=== PATIENT | female | born 1985 | race Two or more races ===

== ENCOUNTER 2022-07-15 21:17 | Inpatient (IN) | payer MEDICAID, OTHER ==
[~2022-07-15] VITALS: Ht 162.6 cm; Wt 64.7 kg
[2022-07-15] MEDS ORDERED: ONDANSETRON ODT 4 MG TAB PO ONE (23:30)
[2022-07-15 23:36] LABS: Basophils # (auto) 0.1 10 ^3/uL (0-0.2); Eosinophils # (auto) 0 10 ^3/uL (0-0.8); Eosinophils % (auto) 0.2 % (0.0-7.0); Hematocrit 35.1 % (36.0-46.0)
[2022-07-15 23:38] LABS: Basophils % (auto) 0.4 % (0.0-2.0); Hemoglobin 10.7 g/dL (12.2-16.2); Lymphocytes # (auto) 1.5 10 ^3/uL (0.4-5.4); Lymphocytes % (auto) 9.7 % (10.0-50.0); Mean Corpuscular Hemoglobin 22.1 pg (28.0-32.0); Mean Corpuscular Hgb Conc. 30.5 g/dL (32.0-36.0); Mean Corpuscular Volume 72.2 fL (80.0-100.0); Monocytes # (auto) 0.8 10 ^3/uL (0-1.3); Monocytes % (auto) 4.8 % (0.0-12.0); Neutrophils # (auto) 13.5 10 ^3/uL (1.6-8.6); Neutrophils % (auto) 84.9 % (37.0-80.0); Nucleated Red Blood Cells % 0.1 %; Red Blood Cells 4.86 10^6/uL (4.0-5.20); Red Cell Distribution Width 17.6 % (11.8-14.3); White Blood Cell 15.9 10^3/uL (4.4-10.8)
[2022-07-15 23:48] LABS: Albumin 3.8 g/dL (3.4-5.0); BUN/Creatinine Ratio 14.7 (10.0-20.0); Calcium 9.9 mg/dL (8.5-10.1); Potassium 3.7 mmol/L (3.5-5.1)
[2022-07-15 23:50] LABS: Bilirubin, Total 0.3 mg/dL (0.2-1.0)
[2022-07-16 00:03] LABS: Urine Bacteria FEW /hpf (None Seen); Urine Blood Negative /uL (Negative); Urine Hyaline Cast FEW /lpf (0 - 2); Urine Mucus FEW (None Seen); Urine WBC 12 /hpf (0 - 5)
[2022-07-16] MEDS ORDERED: MORPHINE SULFATE 4 MG/ML SYR/VIAL IV ONE (01:30)
[2022-07-16] MEDS ORDERED: ONDANSETRON HCL 4 MG/2 ML VIAL IV ONE (01:30)
[2022-07-16] MEDS ORDERED: MORPHINE SULFATE INJ 2 MG/ml SYRG IV PRN (03:45)
[2022-07-16] MEDS ORDERED: cefTRIAXone 1GM/50ML D5W 50 ML IV ONE (03:45)
[2022-07-16] MEDS ORDERED: NITROGLYCERIN 0.4 MG SL TAB SL PRN (03:45)
[2022-07-16] MEDS ORDERED: ACETAMINOPHEN 325 MG TAB PO PRN (03:45)
[2022-07-16] MEDS ORDERED: HYDROcodone-ACET 5/325MG TAB PO PRN (03:45)
[2022-07-16] MEDS: SODIUM CHLORIDE 0.9% 1,000 ML IV SCH ×2 (04:13→23:41)
[2022-07-16] MEDS: MORPHINE SULFATE INJ 2 MG/ml SYRG IV PRN ×4 (05:06→21:19)
[2022-07-16] MEDS ORDERED: MORPHINE SULFATE INJ 2 MG/ml SYRG IV ONE (06:15)
[2022-07-16] MEDS ORDERED: ONDANSETRON HCL 4 MG/2 ML VIAL IV PRN (06:15)
[2022-07-16 06:47] LABS: Eosinophils # (auto) 0 10 ^3/uL (0-0.8); Hemoglobin 10.1 g/dL (12.2-16.2)
[2022-07-16 06:49] LABS: Basophils # (auto) 0.1 10 ^3/uL (0-0.2); Basophils % (auto) 0.5 % (0.0-2.0); Hematocrit 32.2 % (36.0-46.0); Lymphocytes # (auto) 0.9 10 ^3/uL (0.4-5.4); Lymphocytes % (auto) 8.9 % (10.0-50.0); Mean Corpuscular Hgb Conc. 31.5 g/dL (32.0-36.0); Mean Corpuscular Volume 73.3 fL (80.0-100.0); Monocytes # (auto) 0.7 10 ^3/uL (0-1.3); Monocytes % (auto) 6.9 % (0.0-12.0); Neutrophils # (auto) 8.3 10 ^3/uL (1.6-8.6); Neutrophils % (auto) 83.7 % (37.0-80.0); Red Cell Distribution Width 17.5 % (11.8-14.3); White Blood Cell 9.9 10^3/uL (4.4-10.8)
[2022-07-16] MEDS: ONDANSETRON HCL 4 MG/2 ML VIAL IV PRN ×3 (06:54→21:17)
[2022-07-16 07:05] LABS: Albumin 3.5 g/dL (3.4-5.0); Calcium 9.3 mg/dL (8.5-10.1); Potassium 4.2 mmol/L (3.5-5.1)
[2022-07-16 07:08] LABS: BUN/Creatinine Ratio 15.7 (10.0-20.0)
[2022-07-16 07:10] LABS: Bilirubin, Total 0.3 mg/dL (0.2-1.0); Total Protein 7.5 g/dL (6.4-8.2)
[2022-07-16] MEDS ORDERED: GASTROGRAFIN 120 ML SOL ONE (08:59)
[2022-07-16 20:00] VITALS: BP 122/73
[2022-07-16] MEDS: cefTRIAXone 1GM/50ML D5W 50 ML IV SCH (21:17)
[2022-07-16 23:22] VITALS: BP 122/64
[2022-07-17 05:00] VITALS: BP 122/73
[2022-07-17 06:11] LABS: Eosinophils # (auto) 0.1 10 ^3/uL (0-0.8); Hemoglobin 9.5 g/dL (12.2-16.2); Mean Corpuscular Hemoglobin 23.2 pg (28.0-32.0); Nucleated Red Blood Cells % 0.1 %; Red Blood Cells 4.11 10^6/uL (4.0-5.20); White Blood Cell 5.3 10^3/uL (4.4-10.8)
[2022-07-17 06:15] LABS: Basophils # (auto) 0 10 ^3/uL (0-0.2); Basophils % (auto) 0.4 % (0.0-2.0); Eosinophils % (auto) 2.2 % (0.0-7.0); Lymphocytes # (auto) 1.7 10 ^3/uL (0.4-5.4); Lymphocytes % (auto) 31.7 % (10.0-50.0); Mean Corpuscular Hgb Conc. 31.7 g/dL (32.0-36.0); Monocytes # (auto) 0.6 10 ^3/uL (0-1.3); Monocytes % (auto) 10.9 % (0.0-12.0); Neutrophils # (auto) 2.9 10 ^3/uL (1.6-8.6); Neutrophils % (auto) 54.8 % (37.0-80.0); Red Cell Distribution Width 17.1 % (11.8-14.3)
[2022-07-17 06:52] LABS: BUN/Creatinine Ratio 19.6 (10.0-20.0); Calcium 8.8 mg/dL (8.5-10.1); Potassium 3.8 mmol/L (3.5-5.1)
[2022-07-17 06:54] LABS: Bilirubin, Total 0.5 mg/dL (0.2-1.0); Total Protein 6.2 g/dL (6.4-8.2)
[2022-07-17 08:53] VITALS: BP 106/66
[2022-07-17] MEDS: ONDANSETRON HCL 4 MG/2 ML VIAL IV PRN (09:36)
[2022-07-17] MEDS: MORPHINE SULFATE INJ 2 MG/ml SYRG IV PRN ×2 (09:37→22:15)
[2022-07-17 12:52] VITALS: BP 92/57
[2022-07-17] MEDS: SODIUM CHLORIDE 0.9% 1,000 ML IV SCH (13:05)
[2022-07-17 17:23] VITALS: BP 85/54
[2022-07-17 22:00] VITALS: BP 103/63
[2022-07-17] MEDS: cefTRIAXone 1GM/50ML D5W 50 ML IV SCH (22:21)
[2022-07-18 05:00] VITALS: BP 92/47
[2022-07-18] MEDS: SODIUM CHLORIDE 0.9% 1,000 ML IV SCH (05:25)
[2022-07-18 08:27] VITALS: BP 106/54
[2022-07-18 13:00] VITALS: BP 115/73
[2022-07-18] MEDS ORDERED: CEPH-510 PO (16:52)
[2022-07-18 17:14] VITALS: BP 114/81
== END 2022-07-18 18:38 | disposition home or self-care (01) | DRG 247 ==
LOC: ER 21:17 → OVERFLOW 07-16 03:47 → WEST WING 07-16 18:30
PROVIDERS: ADMIT Nurse Practitioner Family; ATTEND Internal Medicine
PROC: 0D9670Z Drainage of Stomach with Drainage Device, Via Natural or Artificial Opening (ICD-10-PCS; principal; 2022-07-16)
DX: K56.600 Partial intestinal obstruction, unspecified as to cause (principal); D50.9 Iron deficiency anemia, unspecified; N39.0 Urinary tract infection, site not specified; E66.9 Obesity, unspecified; Z98.84 Bariatric surgery status; Z68.24 Body mass index [BMI] 24.0-24.9, adult
CPT/HCPCS: 36415; 71045; 74018; 74177; 74250; 80053; 81001; 83690; 84702; 85025; 87086; 96365; 96375; G0378; J0696; J2405; Q0162